=== PATIENT | female | born 2000 | race Caucasian/White ===

== ENCOUNTER 2018-06-02 16:03 | Emergency (ER) | payer SELFPAY ==
[2018-06-02 17:26] LABS: Urine Blood 3+ (NEG); Urine Glucose NEGATIVE (NEG); Urine Protein 1+ (NEG); Urine Specific Gravity >1.030 (1.005-1.030); Urine pH 5.5 (5.0-7.0)
--- NOTE | 2018-06-02 17:34 | EDPHYS ---
Physician Documentation [facility] Name: Danica Gutiérrez Age: 17 yrs Sex: Female : 2000 Arrival Date: 06/02/2018 Time: 16:08 Bed 17 Private MD: ED Physician Abiel Thomson HPI: 06/02 16:39 This 17 yrs old Female presents to ER via Ambulatory with complaints of rn Abdominal Cramping. 17:28 The patient presents with abdominal pain. Onset: The symptoms/episode began/occurred 4 rn year(s) ago. The symptoms do not radiate. Associated signs and symptoms: Pertinent negatives: nausea and vomiting, anorexia, blood in stools, chest pain, constipation, diarrhea, dysuria, fever, vaginal discharge, vomiting, vomiting blood. Modifying factors: The symptoms are alleviated by nothing, the symptoms are aggravated by movement. Severity of pain: At its worst the pain was moderate in the emergency department the pain has improved. The patient has experienced similar episodes in the past. Reports moderate abd cramping with each menstrual period for 4 years, not sexually active, lasts for a few days then goes away, no fever, no change, this episode is identical to previous episodes, sometimes better with midol/motrin. . 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 - Social history:: Smoking status: Patient/guardian denies using tobacco. - Ebola Screening: : Patient denies travel to an Ebola-affected area in the 21 days before illness onset. - Family history:: not pertinent. - Hospitalizations: : No recent hospitalization is reported. ROS: 17:28 Constitutional: Negative for fever, chills, and weight loss, Eyes: Negative for injury, rn pain, redness, and discharge, Cardiovascular: Negative for chest pain, palpitations, and edema, Respiratory: Negative for shortness of breath, cough, wheezing, and pleuritic chest pain, Abdomen/GI: Negative for nausea, vomiting, diarrhea, and constipation, MS/Extremity: Negative for injury and deformity, Skin: Negative for injury, rash, and discoloration, Neuro: Negative for headache, weakness, numbness, tingling, and seizure. Exam: 17:28 Constitutional: This is a well developed, well nourished patient who is awake, alert, rn and in no acute distress. Eyes: Pupils equal round and reactive to light, extra-ocular motions intact. Lids and lashes normal. Conjunctiva and sclera are non-icteric and not injected. Cornea within normal limits. Periorbital areas with no swelling, redness, or edema. ENT: MMM Abdomen/GI: soft, non-tender Back: No spinal tenderness. No costovertebral tenderness. Full range of motion. Neuro: Awake and alert, GCS 15, oriented to person, place, time, and situation. Cranial nerves II-XII grossly intact. Motor strength 5/5 in all extremities. Sensory grossly intact. Cerebellar exam normal. Normal gait. Vital Signs: 16:23 BP 131 / 79; Pulse 78; Resp 18; Temp 97.8(TE); Pulse Ox 100% on R/A; Pain 10/10; tw2 MDM: 16:28 Patient medically screened. rn 17:28 Differential diagnosis: Ectopic , non-specific abd pain, Pyelonephritis, rn urinary tract infection, endometriosis. Data reviewed: vital signs, nurses notes, lab test result(s), and as a result, I will discharge patient. Counseling: I had a detailed discussion with the patient and/or guardian regarding: the historical points, exam findings, and any diagnostic results supporting the discharge/admit diagnosis, lab results, the need for outpatient follow up, to return to the emergency department if symptoms worsen or persist or if there are any questions or concerns that arise at home. Special discussion: I discussed with the patient/guardian in detail that at this point there is no indication for admission to the hospital. It is understood, however, that if the symptoms persist or worsen the patient needs to return immediately for re-evaluation. Based on the history and exam findings, there is no indication for further emergent testing or inpatient evaluation. I discussed with the patient/guardian the need to see the OB Gyne specialist for further evaluation of the symptoms. ED course: Symptoms most likely either bad periods or endometriosis, patient took herself off of control pills that her previous lavatory attendant prescribed, I recommended BAD CLOTH CHECKER f/u for further and reevaluation. UA without UTI and neg preg. Also, symptoms present for 4 years. . 06/02 17:14 Order name: Urine Dipstick--Ancillary (enter results); Complete Time: 17:28 bd 06/02 17:14 Order name: Urine --Ancillary (enter results); Complete Time: 17:28 bd 06/02 16:38 Order name: Urine Dipstick-Ancillary (obtain specimen); Complete Time: 16:50 rn 06/02 16:38 Order name: Urine Test (obtain specimen); Complete Time: 16:50 rn Administered Medications: No medications were administered Disposition: 06/02/18 17:33 Discharged to Home. Impression: Endometriosis. - Condition is Stable. - Discharge Instructions: Endometriosis. - Prescriptions for Diclofenac Sodium 75 mg Oral Tablet Sustained Release - take 1 tablet by ORAL route 2 times per day; 30 tablet. - Medication Reconciliation Form, Thank You Letter, Antibiotic Education, Prescription Opioid Use form. - Follow up: Lisa Rhoades MD; When: As needed; Reason: Recheck today's complaints, Re-evaluation by your physician. - Problem is an ongoing problem. - Symptoms have improved. Signatures: Dispatcher [employer] EDMS Abiel Thomson MD MD rn Attema, Lee, RN RN la1 Shaylee Vidal RN RN tw2 Corrections: (The following items were deleted from the chart) 17:45 17:33 06/02/2018 17:33 Discharged to Home. Impression: Endometriosis. Condition is la1 Stable. Forms are Medication Reconciliation Form, Thank You Letter, Antibiotic Education, Prescription Opioid Use. Follow up: Lisa Rhoades; When: As needed; Reason: Recheck today's complaints, Re-evaluation by your physician. Problem is an ongoing problem. Symptoms have improved. rn
--- NOTE | 2018-06-02 17:34 | ER ---
Nurse's Notes [facility] Name: Danica Gutiérrez Age: 17 yrs Sex: Female : 2000 Arrival Date: 06/02/2018 Time: 16:08 Bed 17 Private MD: Diagnosis: Endometriosis Presentation: 06/02 16:20 Presenting complaint: Patient states: i started having abdominal cramping that started tw2 really bad this morning, it has been going on for years, monthly pain, i am on my period right now and i am nauseous. Presenting complaint: i have tried control to help but it hasnt, and now i am not taking any control. Transition of care: patient was not received from another setting of care. Onset of symptoms was June 02, 2018. Risk Assessment: Do you want to hurt yourself or someone else? Patient reports no desire to harm self or others. Initial Sepsis Screen: Does the patient meet any 2 criteria? No. Patient's initial sepsis screen is negative. Does the patient have a suspected source of infection? No. Patient's initial sepsis screen is negative. Care prior to arrival: None. 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 - Social history:: Smoking status: Patient/guardian denies using tobacco. - Ebola Screening: : Patient denies travel to an Ebola-affected area in the 21 days before illness onset. - Family history:: not pertinent. - Hospitalizations: : No recent hospitalization is reported. Screenin:03 Abuse screen: Denies threats or abuse. Nutritional screening: No deficits noted. la1 Tuberculosis screening: No symptoms or risk factors identified. Fall Risk None identified. Assessment: 17:02 General: Appears in no apparent distress. Behavior is calm, cooperative. Pain: la1 Complains of pain in suprapubic area. Neuro: Level of Consciousness is awake, alert, obeys commands, Oriented to person, place, time, situation. Cardiovascular: Heart tones S1 S2 present Capillary refill < 3 seconds Patient's skin is warm and dry. Respiratory: Airway is patent Respiratory effort is even, unlabored, Respiratory pattern is regular, symmetrical. GI: Abdomen is round non-distended, Bowel sounds present X 4 quads. Abd is soft and non tender X 4 quads. Vital Signs: 16:23 BP 131 / 79; Pulse 78; Resp 18; Temp 97.8(TE); Pulse Ox 100% on R/A; Pain 10/10; tw2 ED Course: 16:08 Patient arrived in ED. sb2 16:22 Triage completed. tw2 16:23 Arm band placed on. tw2 16:28 Abiel Thomson MD is Attending Physician. rn 16:49 Urine collected: clean catch specimen, vilma colored. 3 17:02 Quan Bailey, RN is Primary Nurse. la1 17:03 Bed in low position. Call light in reach. la1 17:33 Lisa Rhoades MD is Referral Physician. rn 17:44 No provider procedures requiring assistance completed. Patient did not have IV access la1 during this emergency room visit. Administered Medications: No medications were administered Outcome: 17:33 Discharge ordered by . rn 17:44 Discharged to home ambulatory. la1 17:44 Condition: stable 17:44 Discharge instructions given to patient, Instructed on discharge instructions, follow up and referral plans. medication usage, Demonstrated understanding of instructions, follow-up care, medications, Prescriptions given X 1. 17:45 Patient left the ED. la1 Signatures: Abiel Thomson MD MD rn Attema, Lee, RN RN tn1 Shaylee Vidal RN RN 2 María Elena Carson 3 Nadira Booth 2
== END 2018-06-02 17:45 | disposition home or self-care (01) ==
LOC: ER 16:03
DX: N80.9 Endometriosis, unspecified (principal)
CPT/HCPCS: 81003; 81025; 99283